=== PATIENT | male | born 2000 | race Caucasian/White ===

== ENCOUNTER 2020-04-24 13:09 | Emergency (ER) | payer MEDICAID ==
[~2020-04-24] VITALS: Ht 188 cm; Wt 118.0 kg
[2020-04-24 13:13] VITALS: BP 142/86
[2020-04-24] MEDS ORDERED: XYL25J MM (14:31)
== END 2020-04-24 14:40 | disposition home or self-care (01) ==
LOC: ER 13:09
DX: J02.9 Acute pharyngitis, unspecified (principal); Z20.828 Contact with and (suspected) exposure to other viral communicable diseases; Z79.899 Other long term (current) drug therapy
CPT/HCPCS: 36415; 87081; 87635; 87880; 99283

== ENCOUNTER 2023-12-31 08:09 | Emergency (ER) | payer MEDICAID ==
[~2023-12-31] VITALS: Ht 188 cm; Wt 90.9 kg
[~2023-12-31 08:09] MED LIST: XYL25J MM
[2023-12-31 08:54] LABS: BASOPHILS # (AUTO) 0.1 X10'3 (0-0.2); BASOPHILS % (AUTO) 0.6 % (0-1); EOSINOPHILS % (AUTO) 0.2 % (0-6); HEMATOCRIT 46.7 % (42.0-52.0); HEMOGLOBIN 15.8 g/dl (14.0-17.9); LYMPHOCYTES # (AUTO) 1.8 X10'3 (1.1-4.8); MEAN CORPUSCULAR HEMOGLOBIN 28.8 PG (27.0-31.0); MEAN CORPUSCULAR HGB CONC 33.9 g/dL (33.0-36.5); MEAN CORPUSCULAR VOLUME 84.8 FL (78-98); MEAN PLATELET VOLUME 8.3 FL (7.4-10.4); MONOCYTES # (AUTO) 0.6 X10'3 (0-0.9); MONOCYTES % (AUTO) 5.7 % (2-12); NEUTROPHILS # (AUTO) 8.1 X10'3 (1.8-7.7); NEUTROPHILS % (AUTO) 76.5 % (42-75); PLATELET COUNT 280 X10'3 (140-440); WHITE BLOOD COUNT 10.6 X10'3 (4.5-11.0)
[2023-12-31 08:59] LABS: BILIRUBIN,URINE NEGATIVE (Neg); CLARITY,URINE SLIGHTLY CLOUDY (Clear); COLOR,URINE YELLOW (Yellow); GLUCOSE, URINE NEGATIVE (Neg); KETONES,URINE 15 mg/dl (Neg); LEUKOCYTE ESTERASE ,URINE NEGATIVE (Neg); NITRITES, URINE NEGATIVE (Neg); OCCULT BLOOD,URINE NEGATIVE (Neg); PROTEIN,URINE NEGATIVE (Neg)
[2023-12-31 09:03] LABS: UA COLLECTION TYPE CLN CATCH MIDSTREAM
[2023-12-31 09:07] LABS: MUCUS STRANDS FEW /LPF (Neg); SQUAMOUS EPITHELIAL CELL,UR FEW /LPF (FEW)
[2023-12-31 09:09] LABS: BACTERIA,URINE FEW /HPF (Neg); RBC,URINE 0-2 /HPF (0-2); WBC,URINE 0-4 /HPF (0-4)
[2023-12-31 09:18] LABS: ALANINE AMINOTRANSFERASE 23 U/L (12-78); ALBUMIN 4.3 G/DL (3.4-5.0); ALBUMIN/GLOBULIN RATIO 1.2 (1.1-1.5); ALKALINE PHOSPHATASE 61 IU/L (46-116); ANION GAP 8 (8-16); ASPARTATE AMINO TRANSFERASE 11 U/L (10-37); BILIRUBIN,TOTAL 0.6 MG/DL (0.1-1.0); BLOOD UREA NITROGEN 15 MG/DL (7-18); CALCIUM 9.2 MG/DL (8.5-10.1); CHLORIDE 99 MMOL/L (99-107); CREATININE 0.94 MG/DL (0.60-1.10); GLUCOSE 107 MG/DL (70-104); LIPASE 28 U/L (16-77); POTASSIUM 3.5 MMOL/L (3.5-5.1); SODIUM 133 MMOL/L (135-145); TOTAL CARBON DIOXIDE 26.5 MMOL/L (24-32); TOTAL PROTEIN 7.8 G/DL (6.4-8.2); eCRCL 140 ML/MIN; eGFR > 90 ML/MIN
[2023-12-31] MEDS ORDERED: ketorolac trometh. 30mg/ml inj. IV ONE (09:45)
[2023-12-31] MEDS: ketorolac tromethamine 15mg/ml inj. IV ONE (09:54)
[2023-12-31] MEDS: diphenhydrAMINE 50 mg/ml inj IV ONE (09:55)
[2023-12-31] MEDS: metoclopramide 5 mg/ml inj IV ONE (09:56)
[2023-12-31] MEDS: morphine 4 MG/ML inj SYRINge IV ONE (10:20)
[2023-12-31] MEDS ORDERED: iohexol 300mg/ml 100ml inj. ONE (11:09)
[2023-12-31] MEDS ORDERED: GOLYS PO (12:08)
[2023-12-31 12:32] VITALS: BP 113/72; PULSE 68; RESP 16; TEMP 98.6; O2SAT 98
== END 2023-12-31 12:34 | disposition home or self-care (01) ==
LOC: ER 08:09
DX: R10.11 Right upper quadrant pain (principal); Z72.89 Other problems related to lifestyle; Z79.899 Other long term (current) drug therapy
CPT/HCPCS: 36415; 74177; 76700; 80053; 81001; 83690; 85025; 96374; 96375; 99285; J1200; J1885; J2270; J2765; J3490; Q9967